=== PATIENT | male | born 1985 | race African-American/Black ===

== ENCOUNTER 2016-10-24 19:12 | Inpatient (IN) | payer MEDICAID, OTHER ==
[2016-10-24] MEDS ORDERED: HYDROmorphone 1 MG/ML 1 ML SYRINGE IVP STA (19:45)
--- NOTE | 2016-10-24 20:10 | XR ---
EXAMINATION TYPE: XR Hip RT and AP Pelvis DATE OF EXAM: 10/24/2016 8:03 PM COMPARISON: 06/30/2016 HISTORY: Fell today. Hip pain TECHNIQUE: A single AP view of the pelvis is obtained. Two views of the right hip are obtained. FINDINGS: There are multiple screws and plates fixing an old fracture of the right acetabulum. Proxi mal femurs are intact. Sacroiliac joints appear normal. I see no acute fracture. There is calcificati on lateral to the right hip joint. IMPRESSION: Old right acetabular fracture. No acute fracture seen. No change compared to old exam.
--- NOTE | 2016-10-24 20:34 | CT ---
EXAMINATION TYPE: CT brain cspine wo con DATE OF EXAM: 10/24/2016 8:22 PM COMPARISON: 06/30/2016 HISTORY: Syncope and frontal injury. CT DLP: 1961.30 mGycm Automated exposure control for dose reduction was used. TECHNIQUE: CT scan of the head and cervical spine are performed without contrast. FINDINGS: The ventricles and sulci appear normal. There is no mass effect nor midline shift. There is no sign of intracranial hemorrhage. The cervical vertebra have normal alignment. Disc spaces are fairly normal. Posterior elements are in tact. Exam is limited by the obesity. Skull base appears intact. IMPRESSION: Negative CT scan of the brain. Negative CT scan of the cervical spine. No change compared to old exam .
[2016-10-24 20:40] LABS: Basophils % (A) 1 %; CH 30.7; CHCM 34.1; Eosinophils # (A) 0.1 k/uL (0-0.7); Eosinophils % (A) 3 %; HCT 44.9 % (39.0-53.0); HDW 2.43; Luc # (Auto) 0.08; Luc % (Auto) 2; Lymphocytes # (A) 1.4 k/uL (1.0-4.8); Lymphocytes % (A) 28 %; MCH 30.3 pg (25.0-35.0); MCHC 33.5 g/dL (31.0-37.0); MCV 90.4 fL (80.0-100.0); Mean Platelet Volume 8.5; Monocytes # (A) 0.4 k/uL (0-1.0); Monocytes % (A) 8 %; Neutrophils # (A) 2.9 k/uL (1.3-7.7); Neutrophils % (A) 59 %; RBC 4.96 m/uL (4.30-5.90); RDW 13.5 % (11.5-15.5); WBC 4.9 k/uL (3.8-10.6)
[2016-10-24 20:51] LABS: ALT 52 U/L (21-72); AST 33 U/L (17-59); Alcohol <10 mg/dL; Alkaline Phosphatase 90 U/L (38-126); Amylase 69 U/L (30-110); Anion Gap 13 mmol/L; Blood Urea Nitrogen 13 mg/dL (9-20); Carbon Dioxide 24 mmol/L (22-30); Chloride 101 mmol/L (98-107); Glucose 128 mg/dL (74-99); Non-African American GFR(MDRD) >60 (>60 ml/min/1.73 sqM); Potassium 4.4 mmol/L (3.5-5.1); Sodium 138 mmol/L (137-145); Total Bilirubin 1.1 mg/dL (0.2-1.3); Total Protein 7.6 g/dL (6.3-8.2)
[2016-10-24 20:53] LABS: Creatine Kinase 275 U/L (55-170); Partial Thromboplastin Time 24.5 sec (22.0-30.0); Prothrombin Time 10.2 sec (9.0-12.0)
[2016-10-24 21:06] LABS: Creatine Kinase MB 1.3 ng/mL (0.0-2.4); Troponin I <0.012 ng/mL (0.000-0.034)
[2016-10-24] MEDS ORDERED: KETOROLAC 30 MG/ML 1 ML VIAL IVP STA (21:29)
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
[2016-10-25] MEDS ORDERED: MORPHINE SULFATE ER 30 MG TABLET PO STA (01:42)
[2016-10-25] MEDS ORDERED: MAG HYDROX/AL HYDROX/SIMETH 30 ML CUP PO PRN (02:43)
[2016-10-25] MEDS ORDERED: MAGNESIUM HYDROXIDE 2,400 MG/10 ML CUP PO PRN (02:43)
[2016-10-25] MEDS ORDERED: ZIPRASIDONE 20 MG VIAL IM PRN (02:43)
[2016-10-25 03:35] VITALS: BMI 42.7
[2016-10-25] MEDS ORDERED: MORPHINE SULFATE IR 15 MG TABLET PO SCH (09:00)
[2016-10-25] MEDS: amLODIPine 10 MG TAB PO SCH (09:04)
[2016-10-25] MEDS: NICOTINE 21MG/24HR PATCH TRANSDERM SCH (09:04)
[2016-10-25] MEDS: RIVAROXABAN 10 MG TAB PO SCH (09:05)
[2016-10-25] MEDS: FAMOTIDINE 20 MG TAB PO SCH ×2 (09:07→21:58)
[2016-10-25] MEDS: PANTOPRAZOLE 40 MG TABLET PO SCH ×2 (09:07→17:56)
[2016-10-25] MEDS: DIAZEPAM 5 MG TAB PO SCH ×3 (09:07→21:59)
[2016-10-25] MEDS ORDERED: GABAPENTIN 300 MG CAP PO SCH (13:00)
[2016-10-25] MEDS: oxyCODONE-APAP 10-325MG 1 EACH TAB PO PRN ×3 (15:06→22:01)
[2016-10-25] MEDS: GABAPENTIN 300 MG CAP PO SCH ×2 (16:50→21:58)
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
[2016-10-25] MEDS ORDERED: AMITRIPTYLINE HCL 25 MG TAB PO SCH (21:00)
[2016-10-25] MEDS ORDERED: QUEtiapine 50 MG TAB PO SCH (21:00)
[2016-10-26] MEDS: PANTOPRAZOLE 40 MG TABLET PO SCH ×2 (09:49→17:17)
[2016-10-26] MEDS: RIVAROXABAN 10 MG TAB PO SCH (09:49)
[2016-10-26] MEDS: amLODIPine 10 MG TAB PO SCH (09:49)
[2016-10-26] MEDS: NICOTINE 21MG/24HR PATCH TRANSDERM SCH (09:52)
[2016-10-26] MEDS: DIAZEPAM 5 MG TAB PO SCH ×3 (09:52→21:16)
[2016-10-26] MEDS: FAMOTIDINE 20 MG TAB PO SCH ×2 (09:52→21:16)
[2016-10-26] MEDS: oxyCODONE-APAP 10-325MG 1 EACH TAB PO PRN ×4 (09:53→21:29)
--- NOTE | 2016-10-26 12:27 | P.PN ---
Subjective SUBJECTIVE: Patient endorses command auditory hallucination "Voice telling me to kill myself ",trouble falling asleep ,slept from 2 AM till 9 AM,limited interaction with other peers because"I do not want to loose my temper",feeling helpless and having difficulty accepting his disability "I am 31 years but I do not have physical strength ,I do feel useless" PER NURSING STAFF:Staff tried to offer him "Walker "for his unstable gait but he was reluctant MENTAL STATUS EXAM: Patient is 31 years male ,limping ,gait is slow and unsteady, pleasant on approach ,fair eyes contact,speech is coherent and goal directed , reports auditory hallucinations ,command in nature,his affect is dysphoric with mixture of irritability and anxiety,somatic preoccupied, worthless feeling,lert and oriented to place ,person and time,able to contract for safety,insight and judgment are limited ASSESSMENT:Patient is still endorsing command auditory hallucination,sleep disturbance and irritability PLAN: 1) Increase Seroquel to restore sleep and eliminate hallucinations 2)Zoloft 50 mg QAM for anxiety and depression,continue Neurontin for pain and as mood stabilizer 3) PT consult ,encourage groups participation Objective - Vital Signs Vital signs: Vital Signs Temp 97.9 F 10/26/16 05:37 Pulse 86 10/26/16 02:03 Resp 18 10/26/16 05:37 BP 136/75 10/26/16 05:37 Pulse Ox 99 10/25/16 03:25 Intake & Output 10/25/16 10/26/16 10/26/16 18:59 06:59 18:59 Weight 151.188 kg - Labs CBC & Chem 7: 10/24/16 19:28 10/24/16 19:28
[2016-10-26] MEDS: GABAPENTIN 300 MG CAP PO SCH ×3 (13:42→21:16)
[2016-10-26] MEDS: SERTRALINE 50 MG TAB PO SCH (13:42)
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
[2016-10-26] MEDS: QUEtiapine 25 MG TAB PO SCH (21:28)
[2016-10-27] MEDS: oxyCODONE-APAP 10-325MG 1 EACH TAB PO PRN ×5 (01:10→22:12)
[2016-10-27] MEDS: amLODIPine 10 MG TAB PO SCH (09:07)
[2016-10-27] MEDS: FAMOTIDINE 20 MG TAB PO SCH ×2 (09:07→20:51)
[2016-10-27] MEDS: DIAZEPAM 5 MG TAB PO SCH ×3 (09:07→20:51)
[2016-10-27] MEDS: PANTOPRAZOLE 40 MG TABLET PO SCH ×2 (09:07→17:41)
[2016-10-27] MEDS: SERTRALINE 50 MG TAB PO SCH (09:07)
[2016-10-27] MEDS: NICOTINE 21MG/24HR PATCH TRANSDERM SCH (09:07)
[2016-10-27] MEDS: RIVAROXABAN 10 MG TAB PO SCH (09:07)
[2016-10-27] MEDS: GABAPENTIN 300 MG CAP PO SCH ×3 (14:03→20:51)
--- NOTE | 2016-10-27 18:09 | P.PN ---
Progress Note - Text SUBJECTIVE: Patient endorses command auditory hallucination "Less intense than before" still afraid to be alone "I will kill myself"",trouble falling asleep ,slept from 2 AM till 9 AM,limited interaction with other patients,reports that he used to be on "XANAX 1-2 mg TID PRN since 2011 ",he endorses high anxiety and asking to be back on Xanax ,was receptive to try PRN Ativan MENTAL STATUS EXAM: Patient is 31 years male ,limping ,gait is slow and unsteady, pleasant on approach ,fair eyes contact,speech is coherent and goal directed , reports auditory hallucinations ,command in nature,his affect is dysphoric with mixture of irritability and anxiety,somatic preoccupied, worthless feeling, alert and oriented to place ,person and time,able to contract for safety, insight and judgment are limited ASSESSMENT:Patient is still endorsing command auditory hallucination,sleep disturbance , irritability and anxiety PLAN: 1) Continue Seroquel to restore sleep and eliminate hallucinations 2INCREASE Zoloft for anxiety and depression,continue Neurontin for pain and as mood stabilizer 3) Encourage groups participation
[2016-10-27] MEDS ORDERED: LORazepam 1 MG TAB PO PRN (18:10)
[2016-10-27] MEDS: QUEtiapine 25 MG TAB PO SCH (20:51)
[2016-10-28] MEDS: oxyCODONE-APAP 10-325MG 1 EACH TAB PO PRN ×3 (05:31→18:48)
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
[2016-10-28] MEDS: PANTOPRAZOLE 40 MG TABLET PO SCH ×2 (09:02→16:53)
[2016-10-28] MEDS: ALPRAZolam 0.5 MG TAB PO SCH ×3 (09:02→21:21)
[2016-10-28] MEDS: RIVAROXABAN 10 MG TAB PO SCH (09:02)
[2016-10-28] MEDS: amLODIPine 10 MG TAB PO SCH (09:02)
[2016-10-28] MEDS: FAMOTIDINE 20 MG TAB PO SCH ×2 (09:02→21:21)
[2016-10-28] MEDS: NICOTINE 21MG/24HR PATCH TRANSDERM SCH (09:02)
[2016-10-28] MEDS: SERTRALINE 100 MG TAB PO SCH (09:03)
[2016-10-28] MEDS: BACLOFEN 10 MG TAB PO PRN (10:04)
[2016-10-28] MEDS: LORazepam 1 MG TAB PO PRN (10:07)
[2016-10-28] MEDS: GABAPENTIN 300 MG CAP PO SCH ×3 (12:48→21:21)
[2016-10-29] MEDS: oxyCODONE-APAP 10-325MG 1 EACH TAB PO PRN ×5 (05:31→21:49)
[2016-10-29] MEDS: LORazepam 1 MG TAB PO PRN ×3 (05:34→23:22)
[2016-10-29] MEDS: NICOTINE 21MG/24HR PATCH TRANSDERM SCH (08:29)
[2016-10-29] MEDS: ALPRAZolam 0.5 MG TAB PO SCH ×3 (08:30→21:47)
[2016-10-29] MEDS: FAMOTIDINE 20 MG TAB PO SCH ×2 (08:30→20:05)
[2016-10-29] MEDS: PANTOPRAZOLE 40 MG TABLET PO SCH ×2 (08:30→18:27)
[2016-10-29] MEDS: RIVAROXABAN 10 MG TAB PO SCH (08:31)
[2016-10-29] MEDS: amLODIPine 10 MG TAB PO SCH (08:31)
[2016-10-29] MEDS: SERTRALINE 100 MG TAB PO SCH (08:31)
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
[2016-10-29] MEDS: GABAPENTIN 300 MG CAP PO SCH ×3 (13:32→20:06)
[2016-10-30] MEDS: oxyCODONE-APAP 10-325MG 1 EACH TAB PO PRN ×4 (05:58→23:44)
[2016-10-30] MEDS: NICOTINE 21MG/24HR PATCH TRANSDERM SCH (08:49)
[2016-10-30] MEDS: SERTRALINE 100 MG TAB PO SCH (08:50)
[2016-10-30] MEDS: FAMOTIDINE 20 MG TAB PO SCH ×2 (08:50→21:24)
[2016-10-30] MEDS: PANTOPRAZOLE 40 MG TABLET PO SCH ×2 (08:50→17:51)
[2016-10-30] MEDS: amLODIPine 10 MG TAB PO SCH (08:50)
[2016-10-30] MEDS: RIVAROXABAN 10 MG TAB PO SCH (08:50)
[2016-10-30] MEDS: ALPRAZolam 0.5 MG TAB PO SCH ×3 (08:50→21:26)
[2016-10-30] MEDS: GABAPENTIN 300 MG CAP PO SCH ×3 (13:18→21:24)
[2016-10-30] MEDS: BACLOFEN 10 MG TAB PO PRN ×2 (13:19→21:24)
--- NOTE | 2016-10-30 13:46 | P.PN ---
Progress Note - Text Interval history: Patient is seen in cross coverage in for Dr. Swanson. He does report that he slept last night. He does describe being in pain and does again inquire regarding his Percocet scheduling being less frequent than it was. We did discuss issues regarding pain medication protocol. He relates that he has been sleeping some today and did miss some groups. He does not seem to voice any adverse psychotropic medication side effects. Mental status exam: He is alert and cooperative with the interview. He does not show any agitation. His mood is described as regarding slept some today. His affect overall is slightly restricted. He denies any thoughts of harm to self or others. He does not show any active evidence of psychosis. He denies any hallucinations. Plan: We'll maintain current psychotropic medication regimen. Dr. Swanson to resume care this patient starting tomorrow. Continue to monitor for any medication side effects.
[2016-10-30] MEDS: LORazepam 1 MG TAB PO PRN ×2 (14:47→20:19)
[2016-10-30] MEDS: ACETAMINOPHEN TAB 325 MG TAB PO PRN (14:47)
[2016-10-31] MEDS: oxyCODONE-APAP 10-325MG 1 EACH TAB PO PRN ×5 (05:35→22:05)
[2016-10-31] MEDS: LORazepam 1 MG TAB PO PRN ×3 (06:51→22:56)
[2016-10-31] MEDS: NICOTINE 21MG/24HR PATCH TRANSDERM SCH (08:31)
[2016-10-31] MEDS: amLODIPine 10 MG TAB PO SCH (08:31)
[2016-10-31] MEDS: FAMOTIDINE 20 MG TAB PO SCH ×2 (08:31→20:42)
[2016-10-31] MEDS: RIVAROXABAN 10 MG TAB PO SCH (08:31)
[2016-10-31] MEDS: PANTOPRAZOLE 40 MG TABLET PO SCH ×2 (08:31→19:31)
[2016-10-31] MEDS: SERTRALINE 100 MG TAB PO SCH (08:31)
[2016-10-31] MEDS: ALPRAZolam 0.5 MG TAB PO SCH ×3 (08:32→20:42)
[2016-10-31] MEDS: GABAPENTIN 300 MG CAP PO SCH ×3 (12:38→20:42)
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
[2016-10-31] MEDS: BACLOFEN 10 MG TAB PO PRN (14:38)
[2016-10-31] MEDS: QUEtiapine XR 200 MG TAB.ER.24H PO SCH (19:31)
[2016-10-31] MEDS: ACETAMINOPHEN TAB 325 MG TAB PO PRN (20:41)
[2016-11-01] MEDS: oxyCODONE-APAP 10-325MG 1 EACH TAB PO PRN ×5 (01:23→21:01)
[2016-11-01] MEDS: PANTOPRAZOLE 40 MG TABLET PO SCH ×2 (08:27→17:16)
[2016-11-01] MEDS: NICOTINE 21MG/24HR PATCH TRANSDERM SCH (08:27)
[2016-11-01] MEDS: amLODIPine 10 MG TAB PO SCH ×2 (08:28→08:30)
[2016-11-01] MEDS: FAMOTIDINE 20 MG TAB PO SCH ×2 (08:28→21:00)
[2016-11-01] MEDS: ALPRAZolam 0.5 MG TAB PO SCH ×3 (08:28→21:05)
[2016-11-01] MEDS: GABAPENTIN 100 MG CAP PO SCH (08:29)
[2016-11-01] MEDS: SERTRALINE 100 MG TAB PO SCH (08:29)
[2016-11-01] MEDS: RIVAROXABAN 10 MG TAB PO SCH (08:29)
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
[2016-11-01] MEDS: GABAPENTIN 300 MG CAP PO SCH ×3 (13:46→20:59)
[2016-11-01] MEDS: CYCLOBENZAPRINE 5 MG TAB PO PRN (15:09)
[2016-11-01] MEDS: LORazepam 1 MG TAB PO PRN ×2 (16:40→22:51)
[2016-11-01] MEDS: QUEtiapine XR 200 MG TAB.ER.24H PO SCH (22:51)
[2016-11-02] MEDS: oxyCODONE-APAP 10-325MG 1 EACH TAB PO PRN ×4 (03:57→21:17)
[2016-11-02] MEDS: LORazepam 1 MG TAB PO PRN (04:47)
[2016-11-02] MEDS: CYCLOBENZAPRINE 5 MG TAB PO PRN (06:32)
[2016-11-02] MEDS: SERTRALINE 100 MG TAB PO SCH (08:35)
[2016-11-02] MEDS: GABAPENTIN 100 MG CAP PO SCH (08:36)
[2016-11-02] MEDS: FAMOTIDINE 20 MG TAB PO SCH ×2 (08:36→21:15)
[2016-11-02] MEDS: PANTOPRAZOLE 40 MG TABLET PO SCH ×2 (08:36→18:07)
[2016-11-02] MEDS: ALPRAZolam 0.5 MG TAB PO SCH ×3 (08:38→21:16)
[2016-11-02] MEDS: RIVAROXABAN 10 MG TAB PO SCH (08:45)
[2016-11-02] MEDS: NICOTINE 21MG/24HR PATCH TRANSDERM SCH (08:48)
--- NOTE | 2016-11-02 10:28 | P.PN ---
Progress Note - Text Interval history: He does report that he slept last night. He does describe being in pain and he has been taking PRN Percocet Q 4 hours ,still having anxiety and requesting PRN Ativan"At least twice a day "despite being on schedule dose of Xanax, We did discuss issues regarding his drug seeking behavior for Opium and Benzodiazepine ,patient has very limited insight to this and got very defensive . He is still complaining of command hallucinations , intensity decreased to 4/10 ,he did miss some groups saying "I do feel embarrassed talking about my life" He does not seem to voice any adverse psychotropic medication side effects. Mental status exam: He is alert with the interview. He does not show any agitation. His affect overall is slightly restricted. ,superficially cooperative,guarded,evasive,speech is non spontaneous ,limited in productivity ,tangential,he reports command hallucination,paranoia ,no homicidal ideation, ,alert and oriented to place,person and date,insight and judgment are limited ASSESSMENT:Patient is still endorsing command auditory hallucinations telling him to end his life , ,lot of somatic complains and drug seeking behavior PLAN:1) Limit setting on his drug seeking behavior ,we will decrease PRN Ativan 2) We'll maintain current psychotropic medications as ordered. We'll continue to monitor for any medication side effects, monitor for his ongoing response to treatment. Continue to monitor regarding command hallucinations and suicidal ideation 3) Family meeting to discuss post-plan discharge
[2016-11-02] MEDS: GABAPENTIN 300 MG CAP PO SCH ×3 (13:39→21:15)
[2016-11-02] MEDS: LORazepam 0.5 MG TAB PO PRN (14:39)
[2016-11-02] MEDS: QUEtiapine XR 200 MG TAB.ER.24H PO SCH (22:47)
[2016-11-02 23:16] VITALS: PULSE 74
[2016-11-03 02:15] VITALS: BP 138/65; RESP 20; TEMP 97.5
[2016-11-03] MEDS: LORazepam 0.5 MG TAB PO PRN ×2 (02:24→11:43)
[2016-11-03] MEDS: oxyCODONE-APAP 10-325MG 1 EACH TAB PO PRN ×4 (02:24→13:23)
[2016-11-03] MEDS: CYCLOBENZAPRINE 5 MG TAB PO PRN ×2 (03:13→12:16)
[2016-11-03] MEDS: ALPRAZolam 0.5 MG TAB PO SCH (08:42)
[2016-11-03] MEDS: NICOTINE 21MG/24HR PATCH TRANSDERM SCH (08:42)
[2016-11-03] MEDS: PANTOPRAZOLE 40 MG TABLET PO SCH (08:42)
[2016-11-03] MEDS: FAMOTIDINE 20 MG TAB PO SCH (08:42)
[2016-11-03] MEDS: GABAPENTIN 100 MG CAP PO SCH (08:42)
[2016-11-03] MEDS: amLODIPine 10 MG TAB PO SCH (08:42)
[2016-11-03] MEDS: RIVAROXABAN 10 MG TAB PO SCH (08:43)
[2016-11-03] MEDS: SERTRALINE 100 MG TAB PO SCH (08:43)
[2016-11-03] MEDS: GABAPENTIN 300 MG CAP PO SCH (12:17)
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
== END 2016-11-03 13:32 | disposition home or self-care (01) | DRG 885 ==
LOC: EC 19:12 → 3MHU 10-25 02:06
PROVIDERS: ADMIT Psychiatry & Neurology Psychiatry; ATTEND Psychiatry & Neurology Psychiatry
DX: F33.3 Major depressive disorder, recurrent, severe with psychotic symptoms (principal); R45.851 Suicidal ideations; F60.9 Personality disorder, unspecified; F17.200 Nicotine dependence, unspecified, uncomplicated; F43.10 Post-traumatic stress disorder, unspecified; G89.4 Chronic pain syndrome; K21.9 Gastro-esophageal reflux disease without esophagitis; S00.03XA Contusion of scalp, initial encounter; S16.1XXA Strain of muscle, fascia and tendon at neck level, initial encounter; Z72.89 Other problems related to lifestyle; Z79.01 Long term (current) use of anticoagulants; Z79.899 Other long term (current) drug therapy; W17.89XA Other fall from one level to another, initial encounter
CPT/HCPCS: 36415; 70450; 72125; 73502; 80053; 80320; 82150; 82550; 82553; 83690; 84443; 84484; 85025; 85610; 85730; 96365; 96366; 96367; 96374; 96375; 99285

== ENCOUNTER 2016-12-11 03:26 | Inpatient (IN) | payer MEDICAID, OTHER ==
[2016-12-11] MEDS ORDERED: HYDROcodone/APAP 5-325MG 1 EACH TAB PO STA (03:45)
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
--- NOTE | 2016-12-11 04:31 | XR ---
EXAM: XR Right Ankle Complete, 3 or More Views. CLINICAL HISTORY: Pain TECHNIQUE: Frontal, lateral and oblique views of the right ankle. COMPARISON: No relevant prior studies available. FINDINGS/IMPRESSION: No radiographic evidence for acute fractures or dislocations. Soft tissue swelling. Fixation screws in the right medial malleolus. Joint space narrowing.
[2016-12-11] MEDS ORDERED: MAGNESIUM HYDROXIDE 2,400 MG/10 ML CUP PO PRN (11:16)
[2016-12-11] MEDS ORDERED: ACETAMINOPHEN TAB 325 MG TAB PO PRN (11:16)
[2016-12-11] MEDS ORDERED: MAG HYDROX/AL HYDROX/SIMETH 30 ML CUP PO PRN (11:16)
[2016-12-11] MEDS: RIVAROXABAN 10 MG TAB PO SCH (11:23)
[2016-12-11 11:42] VITALS: BMI 42.7
[2016-12-11] MEDS: amLODIPine 10 MG TAB PO SCH (13:01)
[2016-12-11] MEDS: SERTRALINE 100 MG TAB PO SCH (13:02)
[2016-12-11] MEDS: oxyCODONE-APAP 10-325MG 1 EACH TAB PO PRN ×2 (13:05→19:02)
[2016-12-11] MEDS: GABAPENTIN 300 MG CAP PO SCH ×2 (13:06→17:29)
[2016-12-11] MEDS: NICOTINE 14MG/24HR PATCH TRANSDERM SCH ×2 (13:07→19:15)
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
[2016-12-11] MEDS: PANTOPRAZOLE 40 MG TABLET PO SCH (17:29)
[2016-12-11] MEDS: QUEtiapine XR 200 MG TAB.ER.24H PO SCH (20:33)
[2016-12-11] MEDS: LORazepam 1 MG TAB PO PRN (20:35)
[2016-12-11] MEDS ORDERED: GABAPENTIN 300 MG CAP PO SCH (21:00)
[2016-12-12] MEDS: PANTOPRAZOLE 40 MG TABLET PO SCH ×2 (06:56→16:58)
[2016-12-12] MEDS ORDERED: GABAPENTIN 100 MG CAP PO SCH (09:00)
[2016-12-12] MEDS: NICOTINE 14MG/24HR PATCH TRANSDERM SCH (09:30)
[2016-12-12] MEDS: RIVAROXABAN 10 MG TAB PO SCH (09:31)
[2016-12-12] MEDS: SERTRALINE 100 MG TAB PO SCH (09:31)
[2016-12-12] MEDS: amLODIPine 10 MG TAB PO SCH (09:31)
[2016-12-12] MEDS: oxyCODONE-APAP 10-325MG 1 EACH TAB PO PRN ×5 (09:33→23:14)
[2016-12-12 10:01] LABS: ALT 38 U/L (21-72); AST 30 U/L (17-59); Alkaline Phosphatase 78 U/L (38-126); Anion Gap 12 mmol/L; Blood Urea Nitrogen 12 mg/dL (9-20); Calcium 9.5 mg/dL (8.4-10.2); Carbon Dioxide 27 mmol/L (22-30); Chloride 102 mmol/L (98-107); Glucose 90 mg/dL (74-99); Non-African American GFR(MDRD) >60 (>60 ml/min/1.73 sqM); Potassium 4.4 mmol/L (3.5-5.1); Sodium 141 mmol/L (137-145); Total Bilirubin 1.1 mg/dL (0.2-1.3); Total Protein 7.5 g/dL (6.3-8.2)
[2016-12-12 10:07] LABS: Basophils # (A) 0.1 k/uL (0-0.2); Basophils % (A) 1 %; CH 30.8; CHCM 33.9; Eosinophils # (A) 0.2 k/uL (0-0.7); Eosinophils % (A) 3 %; HGB 14.7 gm/dL (13.0-17.5); Luc # (Auto) 0.26; Luc % (Auto) 4; Lymphocytes # (A) 2.6 k/uL (1.0-4.8); Lymphocytes % (A) 42 %; MCH 31.2 pg (25.0-35.0); MCHC 34.2 g/dL (31.0-37.0); MCV 91.3 fL (80.0-100.0); Mean Platelet Volume 8.4; Monocytes # (A) 0.3 k/uL (0-1.0); Monocytes % (A) 5 %; Neutrophils # (A) 2.8 k/uL (1.3-7.7); Neutrophils % (A) 46 %; RDW 13.4 % (11.5-15.5); WBC 6.2 k/uL (3.8-10.6); WBC (Perox) 6.33
[2016-12-12] MEDS: DULoxetine HCL 30 MG CAPSULE.DR PO SCH (11:06)
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
[2016-12-12] MEDS: GABAPENTIN 400 MG CAP PO SCH ×2 (15:43→20:10)
[2016-12-12] MEDS: LORazepam 1 MG TAB PO PRN (16:05)
[2016-12-12] MEDS: QUEtiapine XR 200 MG TAB.ER.24H PO SCH (20:10)
[2016-12-13] MEDS: GABAPENTIN 400 MG CAP PO SCH ×3 (08:27→21:27)
[2016-12-13] MEDS: amLODIPine 10 MG TAB PO SCH (08:27)
[2016-12-13] MEDS: DULoxetine HCL 30 MG CAPSULE.DR PO SCH (08:27)
[2016-12-13] MEDS: NICOTINE 14MG/24HR PATCH TRANSDERM SCH (08:27)
[2016-12-13] MEDS: RIVAROXABAN 10 MG TAB PO SCH (08:27)
[2016-12-13] MEDS: PANTOPRAZOLE 40 MG TABLET PO SCH ×2 (08:27→18:26)
[2016-12-13] MEDS: oxyCODONE-APAP 10-325MG 1 EACH TAB PO PRN ×4 (08:28→23:16)
--- NOTE | 2016-12-13 10:33 | P.PN ---
Progress Note - Text Interval history: Patient was seen for follow-up ,patient is not participating in groups ,no interaction with peers ,evasive,guarded ,focussing about his pain and has been asking for PRN Ativan and opium medications ,he slept 7 hours but still endorsing command auditory hallucination,feeling hopeless and helpless, talked about lacking motivation to pursue PT and outpatient counseling ,asking again about "Restart his Adderall for energy ",I discussed with him side- effect of Adderall especially with his hallucination but patient did not agree and claimed that he was "HAPPY AND ABLE TO FUNCTION WITH ADDERALL" Mental status exam: The patient is casually dressed Eye contact good speech is fluent mainly reactive to questions asked. He verbalizes having lot of pain and asking to take his pain medication more often He is reporting auditory hallucinations telling him to kill himself ,endorses depressive and anxiety symptoms. He is endorsing no specific delusions Insight to his use for habit forming RX is impaired He is demonstrating no verbal or physical aggressiveness. Plan:Increase Cymbalta for depression and pain ,increase Neurontin 800 mg TID , continue Seroquel XR 200 mg for hallucination and as augmentation ,discontinue Ativan PRN,will continue to monitor his mood ,encourage groups participation
[2016-12-13] MEDS: hydrOXYzine PAMOATE 25 MG CAP PO PRN (18:28)
[2016-12-13] MEDS: QUEtiapine XR 200 MG TAB.ER.24H PO SCH (22:07)
[2016-12-14 01:49] VITALS: RESP 20; TEMP 98.1
[2016-12-14] MEDS: PANTOPRAZOLE 40 MG TABLET PO SCH (08:55)
[2016-12-14] MEDS: amLODIPine 10 MG TAB PO SCH (08:55)
[2016-12-14] MEDS: GABAPENTIN 400 MG CAP PO SCH (08:55)
[2016-12-14] MEDS: NICOTINE 14MG/24HR PATCH TRANSDERM SCH (08:55)
[2016-12-14] MEDS: oxyCODONE-APAP 10-325MG 1 EACH TAB PO PRN ×2 (08:55→13:17)
[2016-12-14] MEDS: RIVAROXABAN 10 MG TAB PO SCH (08:55)
[2016-12-14] MEDS ORDERED: DULoxetine HCL 60 MG CAPSULE.DR PO SCH (09:00)
[2016-12-14 09:02] VITALS: BP 147/74; PULSE 81
[2016-12-14] MEDS: hydrOXYzine PAMOATE 25 MG CAP PO PRN (11:07)
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
== END 2016-12-14 14:24 | disposition home or self-care (01) | DRG 885 ==
LOC: EC 03:26 → 3MHU 10:34
PROVIDERS: ADMIT Psychiatry & Neurology Psychiatry; ATTEND Psychiatry & Neurology Psychiatry
DX: F33.3 Major depressive disorder, recurrent, severe with psychotic symptoms (principal); R45.851 Suicidal ideations; Z91.14 Patient's other noncompliance with medication regimen; F41.0 Panic disorder [episodic paroxysmal anxiety]; F10.129 Alcohol abuse with intoxication, unspecified; F17.200 Nicotine dependence, unspecified, uncomplicated; F43.10 Post-traumatic stress disorder, unspecified; G89.29 Other chronic pain; K21.9 Gastro-esophageal reflux disease without esophagitis; Z86.718 Personal history of other venous thrombosis and embolism; Z87.820 Personal history of traumatic brain injury; V89.2XXS Person injured in unspecified motor-vehicle accident, traffic, sequela; Z79.01 Long term (current) use of anticoagulants; Z79.899 Other long term (current) drug therapy; M54.9 Dorsalgia, unspecified; F11.10 Opioid abuse, uncomplicated; F15.10 Other stimulant abuse, uncomplicated; F13.10 Sedative, hypnotic or anxiolytic abuse, uncomplicated; F60.9 Personality disorder, unspecified
CPT/HCPCS: 80053; 80306; 82075; 84443; 85025; 99285

== ENCOUNTER 2016-12-17 21:55 | Emergency (ER) | payer OTHER ==
[2016-12-17 22:14] VITALS: RESP 18
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
[2016-12-17] MEDS ORDERED: KETOROLAC 60 MG/2 ML VIAL IM STA (22:44)
--- NOTE | 2016-12-17 23:10 | CT ---
EXAM: CT Head Without Intravenous Contrast. CLINICAL HISTORY: Reason: Pain TECHNIQUE: Axial computed tomography images of the head/brain without intravenous contrast. CTDI is 57.40 mGy and DLP is 1705.30 mGy-cm COMPARISON: CT head on 06/30/2016 FINDINGS: Brain: No acute infarct or hemorrhage. No extra-axial fluid collection. No mass effect or midline shift. Ventricles and sulci: Normal. No ventriculomegaly or intraventricular hemorrhage. Skull: Normal. No bony lesion or fracture. Subcutaneous tissues: Mild left posterior scalp hematoma at the vertex. Sinuses: Normal. No air-fluid levels or mucosal thickening. Mastoid air cells: Normal. Orbits: Grossly unremarkable. IMPRESSION: No acute intracranial abnormality. Mild left posterior scalp hematoma at the vertex without underlying skull fracture.
--- NOTE | 2016-12-17 23:18 | CT ---
ADDENDUM - Added by Tony Costello M.D. on 12/17/2016 11:21 PM (-07:00) Exam: CT FACIAL Without Contrast Comparison: None Technique : CT of the facial bones with coronal reformats. CTDI is 57.40 mGy and DLP is 1705.30 mGy-cm FINDINGS: FACIAL BONES: Normal. No facial fracture identified. NASAL FOSSA: Normal. No significant nasal septal deviation. No nasal bone fracture. SINUSES: Very tiny polyp versus mucus retention cyst in the right sphenoid sinus. No mucosal thickening or air-fluid level. SOFT TISSUES: Small metallic densities in the subcutaneous fat overlying the left mandible with mild skin thickening may represent remote injury/foreign body. Minimal soft tissue bruising over the right maxilla. OTHER: IMPRESSION: No acute facial fracture. Small metallic densities in the subcutaneous fat overlying the left mandible with mild skin thickening may represent remote injury/foreign body. Minimal soft tissue bruising over the right maxilla. rScriptor Unformatted Report Format: SC Options: b ui h n cb History: Reason: Pain Exam: CT FACIAL Without Contrast Comparison: None Technique more: CTDI is 57.40 mGy and DLP is 1705.30 mGy-cm FINDINGS: FACIAL BONES: Normal. No facial fracture identified. NASAL FOSSA: Normal. No significant nasal septal deviation. No nasal bone fracture. SINUSES: Very tiny polyp versus mucus retention cyst in the right sphenoid sinus. No mucosal thickening or air-fluid level. SOFT TISSUES: Small metallic densities in the subcutaneous fat overlying the left mandible with mild skin thickening may represent remote injury/foreign body. Minimal soft tissue bruising over the right maxilla. OTHER:
--- NOTE | 2016-12-17 23:28 | XR ---
EXAM: XR Right Hip With Pelvis When Performed, 2 or 3 Views. CLINICAL HISTORY: Reason: Pain TECHNIQUE: Two or three views of the right hip, with pelvis when performed. COMPARISON: Hip and pelvis radiographs on 10/24/2016 FINDINGS: Bones/joints: Again seen are multiple plate and screws fixating an old right acetabular fracture with similar dystrophic calcifications along the lateral right acetabulum. No new fracture identified. No hip dislocation. No bony lesion. Soft tissues: Normal. IMPRESSION: Multiple plates and screws fixating an old right acetabular fracture. No new fracture or dislocation identified.
[2016-12-18 07:45] VITALS: BP 143/80; PULSE 68; TEMP 97.4
== END 2016-12-18 07:45 | disposition home or self-care (01) ==
LOC: EC 21:55
DX: S70.01XA Contusion of right hip, initial encounter (principal); S09.90XA Unspecified injury of head, initial encounter; F32.9 Major depressive disorder, single episode, unspecified; K21.9 Gastro-esophageal reflux disease without esophagitis; F41.9 Anxiety disorder, unspecified; F17.200 Nicotine dependence, unspecified, uncomplicated; Z79.01 Long term (current) use of anticoagulants; Z79.899 Other long term (current) drug therapy; Z87.820 Personal history of traumatic brain injury; Z86.718 Personal history of other venous thrombosis and embolism; W10.9XXA Fall (on) (from) unspecified stairs and steps, initial encounter; W22.09XA Striking against other stationary object, initial encounter
CPT/HCPCS: 82075; 80306; 73502; 70486; 70450; 99284; 96372; J1885

== ENCOUNTER 2017-01-21 12:56 | Emergency (ER) | payer OTHER ==
[2017-01-21 13:49] VITALS: RESP 18
[2017-01-21] MEDS ORDERED: HYDROcodone/APAP 5-325MG 1 EACH TAB PO STA ×2 (14:51→19:59)
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
--- NOTE | 2017-01-21 16:32 | XR ---
EXAMINATION TYPE: XR ankle complete RT DATE OF EXAM: 01/21/2017 4:02 PM COMPARISON: NONE HISTORY: Twisted ankle history of surgery TECHNIQUE: 3 views right ankle FINDINGS: Old open reduction internal fixation with screws into the medial malleolus are evident. Minimal soft tissue swelling is over the medial malleolus. Ankle mortise appears intact. No acute fra ctures evident. IMPRESSION: 1. Old postsurgical changes. 2. No acute osseous abnormality.
[2017-01-21] MEDS ORDERED: IBUPROFEN 800 MG TAB PO STA (16:57)
[2017-01-21 17:56] LABS: Basophils % (A) 1 %; CH 31.4; CHCM 34.5; Eosinophils # (A) 0.2 k/uL (0-0.7); Eosinophils % (A) 3 %; HGB 14.6 gm/dL (13.0-17.5); Luc # (Auto) 0.15; Luc % (Auto) 3; Lymphocytes % (A) 34 %; MCHC 33.9 g/dL (31.0-37.0); MCV 91.3 fL (80.0-100.0); Mean Platelet Volume 7.7; Monocytes # (A) 0.3 k/uL (0-1.0); Monocytes % (A) 5 %; Neutrophils # (A) 3.2 k/uL (1.3-7.7); Neutrophils % (A) 56 %; RBC 4.71 m/uL (4.30-5.90); RDW 13.5 % (11.5-15.5); WBC 5.8 k/uL (3.8-10.6); WBC (Perox) 5.58
[2017-01-21 18:15] LABS: ALT 62 U/L (21-72); AST 43 U/L (17-59); Alkaline Phosphatase 72 U/L (38-126); Anion Gap 9 mmol/L; Blood Urea Nitrogen 14 mg/dL (9-20); Calcium 9.6 mg/dL (8.4-10.2); Carbon Dioxide 26 mmol/L (22-30); Chloride 103 mmol/L (98-107); Glucose 123 mg/dL (74-99); Non-African American GFR(MDRD) >60 (>60 ml/min/1.73 sqM); Potassium 4.4 mmol/L (3.5-5.1); Sodium 138 mmol/L (137-145); Total Bilirubin 0.7 mg/dL (0.2-1.3); Total Protein 7.3 g/dL (6.3-8.2)
[2017-01-22] MEDS ORDERED: oxyCODONE-APAP 10-325MG 1 EACH TAB PO PRN (12:06)
[2017-01-22 15:55] VITALS: BP 156/78; PULSE 70; TEMP 97.9
== END 2017-01-22 15:54 | disposition home or self-care (01) ==
LOC: EC 12:56
DX: F32.9 Major depressive disorder, single episode, unspecified (principal); S99.911A Unspecified injury of right ankle, initial encounter; G89.29 Other chronic pain; M25.471 Effusion, right ankle; R45.851 Suicidal ideations; I82.409 Acute embolism and thrombosis of unspecified deep veins of unspecified lower extremity; F17.200 Nicotine dependence, unspecified, uncomplicated; K21.9 Gastro-esophageal reflux disease without esophagitis; Z79.01 Long term (current) use of anticoagulants; Z79.899 Other long term (current) drug therapy; X50.1XXA Overexertion from prolonged static or awkward postures, initial encounter
CPT/HCPCS: 36415; 80053; 80306; 82075; 85025; 99284

== ENCOUNTER 2017-05-24 15:52 | Emergency (ER) | payer OTHER ==
[2017-05-24] MEDS ORDERED: IBUPROFEN 800 MG TAB PO STA (16:40)
[2017-05-24] MEDS ORDERED: HYDROcodone/APAP 5-325MG 1 EACH TAB PO STA (16:40)
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
[2017-05-24 20:51] LABS: CH 31.9; CHCM 34.3; HCT 41.3 % (39.0-53.0); HDW 2.33; HGB 14.4 gm/dL (13.0-17.5); MCH 32.5 pg (25.0-35.0); MCHC 34.8 g/dL (31.0-37.0); MCV 93.4 fL (80.0-100.0); Mean Platelet Volume 8.5; RBC 4.42 m/uL (4.30-5.90); RDW 14.3 % (11.5-15.5); WBC 7.8 k/uL (3.8-10.6)
[2017-05-24 20:55] LABS: Appearance,Urine Clear (Clear); Bilirubin,Urine Negative (Negative); Glucose,Urine (UA) Negative (Negative); Ketones,Urine Negative (Negative); Leukocyte Esterase,Urine Negative (Negative); Nitrite,Urine Negative (Negative); Protein,Urine Negative (Negative); Specific Gravity,Urine 1.025 (1.001-1.035); UA Billing (MACRO vs. MICRO) CHEM; Urobilinogen,Urine <2.0 mg/dL (<2.0)
[2017-05-24 21:01] LABS: ALT 60 U/L (21-72); AST 39 U/L (17-59); Alkaline Phosphatase 75 U/L (38-126); Anion Gap 11 mmol/L; Blood Urea Nitrogen 12 mg/dL (9-20); Calcium 9.4 mg/dL (8.4-10.2); Carbon Dioxide 21 mmol/L (22-30); Chloride 104 mmol/L (98-107); Glucose 116 mg/dL (74-99); Non-African American GFR(MDRD) >60 (>60 ml/min/1.73 sqM); Potassium 3.7 mmol/L (3.5-5.1); Sodium 136 mmol/L (137-145); Total Bilirubin 0.8 mg/dL (0.2-1.3); Total Protein 7.2 g/dL (6.3-8.2)
[2017-05-24] MEDS ORDERED: oxyCODONE-APAP 10-325MG 1 EACH TAB PO PRN (21:43)
[2017-05-25 01:11] VITALS: BP 143/71; PULSE 67; RESP 16; TEMP 97.1
[2017-05-25] MEDS ORDERED: LORazepam 1 MG TAB PO STA (01:22)
== END 2017-05-25 02:01 | disposition other institution (70) ==
LOC: EC 15:52
DX: R45.851 Suicidal ideations (principal); K21.9 Gastro-esophageal reflux disease without esophagitis; F32.9 Major depressive disorder, single episode, unspecified; F41.9 Anxiety disorder, unspecified; F17.200 Nicotine dependence, unspecified, uncomplicated; Z86.718 Personal history of other venous thrombosis and embolism; Z79.899 Other long term (current) drug therapy
CPT/HCPCS: 36415; 72170; 80053; 80306; 81003; 82075; 85027; 99285

== ENCOUNTER 2017-08-26 18:11 | Emergency (ER) | payer OTHER ==
[2017-08-26] MEDS ORDERED: SODIUM CHLORIDE 0.9% 2,000 ML IV STA (18:52)
[2017-08-26] MEDS ORDERED: KETOROLAC 30 MG/ML 1 ML VIAL IVP STA (18:52)
[2017-08-26] MEDS ORDERED: ONDANSETRON 4 MG/2 ML VIAL IVP STA (18:52)
[2017-08-26] MEDS ORDERED: HYDROmorphone 0.5 MG/0.5 ML SYRINGE IVP STA (18:52)
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
[2017-08-26 20:01] LABS: ALT 76 U/L (21-72); AST 49 U/L (17-59); Alkaline Phosphatase 84 U/L (38-126); Amylase 98 U/L (30-110); Anion Gap 13 mmol/L; Blood Urea Nitrogen 17 mg/dL (9-20); Calcium 9.8 mg/dL (8.4-10.2); Carbon Dioxide 20 mmol/L (22-30); Chloride 100 mmol/L (98-107); Glucose 112 mg/dL (74-99); Non-African American GFR(MDRD) >60 (>60 ml/min/1.73 sqM); Potassium 4.3 mmol/L (3.5-5.1); Sodium 133 mmol/L (137-145); Total Bilirubin 0.9 mg/dL (0.2-1.3); Total Protein 8.5 g/dL (6.3-8.2)
[2017-08-26 22:07] LABS: Basophils % (A) 0 %; CH 29.8; CHCM 32.8; Eosinophils # (A) 0.2 k/uL (0-0.7); Eosinophils % (A) 2 %; HDW 2.16; HGB 15.4 gm/dL (13.0-17.5); Luc # (Auto) 0.07; Luc % (Auto) 1; Lymphocytes % (A) 11 %; MCH 29.9 pg (25.0-35.0); MCHC 32.7 g/dL (31.0-37.0); MCV 91.4 fL (80.0-100.0); Mean Platelet Volume 8.8; Monocytes # (A) 0.4 k/uL (0-1.0); Monocytes % (A) 4 %; Neutrophils # (A) 7.2 k/uL (1.3-7.7); Neutrophils % (A) 82 %; RBC 5.14 m/uL (4.30-5.90); RDW 14.3 % (11.5-15.5); WBC 8.8 k/uL (3.8-10.6); WBC (Perox) 8.72
[2017-08-26] MEDS ORDERED: CIPROFLOXACIN HCL 500 MG TAB PO STA (22:41)
[2017-08-26 23:17] VITALS: BP 142/87; PULSE 68; RESP 20; TEMP 97.9
== END 2017-08-26 22:55 | disposition home or self-care (01) ==
LOC: EC 18:11
DX: K52.9 Noninfective gastroenteritis and colitis, unspecified (principal); K21.9 Gastro-esophageal reflux disease without esophagitis; F17.200 Nicotine dependence, unspecified, uncomplicated; Z86.718 Personal history of other venous thrombosis and embolism; Z79.01 Long term (current) use of anticoagulants; Z79.899 Other long term (current) drug therapy
CPT/HCPCS: 36415; 80053; 82150; 83690; 85025; 87324; 87045; 87046; 99284; 96374; 96375 ×2; 96361 ×2; J2405; J1885; J1170

== ENCOUNTER 2018-01-02 20:47 | Inpatient (IN) | payer MEDICAID, OTHER ==
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
[2018-01-02] MEDS: IBUPROFEN 600 MG TAB PO STA ×2 (21:30→21:31)
--- NOTE | 2018-01-02 21:40 | XR ---
EXAMINATION TYPE: XR knee complete RT DATE OF EXAM: 01/02/2018 CLINICAL HISTORY: Right knee pain after fall TECHNIQUE: Three views of the right knee are obtained. COMPARISON: 11/05/2015 FINDINGS: There is no acute fracture/dislocation evident in right knee. Small marginal osteophytes a re seen of the lateral and medial compartment with minimal medial compartment joint space narrowing. Incidental note of an osteochondroma is seen of the medial distal femoral metaphysis. Mild inferior p atellar pole osteophyte is also noted. Osseous mineralization is within normal limits. The overlying soft tissue appears unremarkable. IMPRESSION: There is no acute fracture or dislocation in the right knee. Mild tricompartmental arthr osis and incidental note of an osteochondroma.
--- NOTE | 2018-01-02 21:42 | XR ---
EXAMINATION TYPE: XR Hip RT and AP Pelvis DATE OF EXAM: 01/02/2018 COMPARISON: NONE HISTORY: Right hip pain TECHNIQUE: A single AP view of the pelvis is obtained. Two views of the right hip are obtained. FINDINGS: There is no acute fracture/dislocation evident in the pelvis. The hip and sacroiliac join ts appear symmetric and unremarkable. The overlying soft tissue appears unremarkable. Two views of right hip show no acute fracture or dislocation although there are extensive surgical ch anges of the right hemipelvis and acetabulum with heterotopic ossification, slightly limiting evaluat ion. No focal lytic or sclerotic lesion seen in the proximal right femur. The overlying soft tissue is unremarkable. IMPRESSION: 1. No evidence of acute fracture or dislocation of the pelvis. 2. No gross evidence of fracture of the right hip although extensive right pelvic postsurgical change s and heterotopic ossification slightly limited evaluation.
--- NOTE | 2018-01-02 21:43 | XR ---
EXAMINATION TYPE: XR cervical spine comp DATE OF EXAM: 01/02/2018 TECHNIQUE: Frontal, lateral, oblique, swimmers, and open mouth view of the cervical spine are obtaine d. HISTORY: Neck pain after fall COMPARISON: None FINDINGS: The cervical spine is visualized in its entirety from C1 thru the top of T1 level, it is s atisfactory in alignment without evidence of acute fracture or dislocation. The pre-vertebral soft t issue appears within normal limits. The C1-C2 articulation is within normal limits on the open mouth view. The oblique images are within normal limits. IMPRESSION: No acute fracture or dislocation is seen in the cervical spine.
[2018-01-02] MEDS ORDERED: IBUPROFEN 600 MG TAB PO STA (21:53)
[2018-01-03 00:23] LABS: Amphetamine Screen,Urine Detected (NotDetected); Barbiturate Screen,Urine Not Detected (NotDetected); Benzodiazepines Screen,Urine Not Detected (NotDetected); Cocaine Screen,Urine Not Detected (NotDetected); Methadone Screen, Urine Not Detected (NotDetected); Opiate Screen,Urine Not Detected (NotDetected); Oxycodone Screen, Urine Not Detected (NotDetected); Phencyclidine Screen,Urine Not Detected (NotDetected); Tricyclic Antidepressant,Urine Detected (NotDetected); Urn Cannabinoid Scrn Not Detected (NotDetected)
[2018-01-03] MEDS ORDERED: MAG HYDROX/AL HYDROX/SIMETH 30 ML CUP PO PRN (02:10)
[2018-01-03] MEDS ORDERED: MAGNESIUM HYDROXIDE 2,400 MG/10 ML CUP PO PRN (02:10)
[2018-01-03] MEDS: GABAPENTIN 400 MG CAP PO SCH ×2 (08:25→20:13)
[2018-01-03] MEDS: LISINOPRIL 5 MG TAB PO SCH (08:26)
[2018-01-03] MEDS: amLODIPine 10 MG TAB PO SCH (08:26)
[2018-01-03] MEDS: HYDROCHLOROTHIAZIDE 25 MG TAB PO SCH (08:26)
[2018-01-03] MEDS: PANTOPRAZOLE 40 MG TABLET PO SCH ×2 (08:26→17:30)
[2018-01-03] MEDS ORDERED: SERTRALINE 50 MG TAB PO SCH (09:00)
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
[2018-01-03] MEDS: oxyCODONE-APAP 10-325MG 1 EACH TAB PO PRN ×2 (14:17→21:20)
[2018-01-03] MEDS: NICOTINE 14MG/24HR PATCH TRANSDERM SCH (14:42)
[2018-01-03 16:37] LABS: Appearance,Urine Clear (Clear); Bilirubin,Urine Negative (Negative); Blood,Urine Negative (Negative); Color,Urine Yellow; Glucose,Urine (UA) Negative (Negative); Ketones,Urine Negative (Negative); Leukocyte Esterase,Urine Negative (Negative); Nitrite,Urine Negative (Negative); PH, Urine 5.5 (5.0-8.0); Protein,Urine Negative (Negative); Specific Gravity,Urine 1.019 (1.001-1.035); Urobilinogen,Urine <2.0 mg/dL (<2.0)
[2018-01-03] MEDS ORDERED: QUEtiapine 50 MG TAB PO SCH (21:00)
[2018-01-04] MEDS: PANTOPRAZOLE 40 MG TABLET PO SCH ×2 (08:15→16:43)
[2018-01-04] MEDS: amLODIPine 10 MG TAB PO SCH (08:15)
[2018-01-04] MEDS: NICOTINE 14MG/24HR PATCH TRANSDERM SCH (08:15)
[2018-01-04] MEDS: GABAPENTIN 400 MG CAP PO SCH ×2 (08:15→20:12)
[2018-01-04] MEDS: LISINOPRIL 5 MG TAB PO SCH (08:16)
[2018-01-04] MEDS: HYDROCHLOROTHIAZIDE 25 MG TAB PO SCH (08:16)
[2018-01-04] MEDS: oxyCODONE-APAP 10-325MG 1 EACH TAB PO PRN ×3 (08:17→20:13)
[2018-01-04] MEDS ORDERED: SERTRALINE 25 MG TAB PO SCH (09:00)
[2018-01-04] MEDS ORDERED: NICOTINE 14MG/24HR PATCH TRANSDERM SCH (09:00)
[2018-01-04] MEDS ORDERED: SERTRALINE 25 MG TAB PO STA (10:26)
[2018-01-04] MEDS: ACETAMINOPHEN TAB 325 MG TAB PO PRN (11:36)
[2018-01-04 12:09] LABS: Basophils % (A) 1 %; Eosinophils # (A) 0.2 k/uL (0-0.7); Eosinophils % (A) 3 %; HCT 48.7 % (39.0-53.0); HGB 15.9 gm/dL (13.0-17.5); Lymphocytes # (A) 2.5 k/uL (1.0-4.8); Lymphocytes % (A) 33 %; MCH 29.6 pg (25.0-35.0); MCHC 32.6 g/dL (31.0-37.0); MCV 90.7 fL (80.0-100.0); Mean Platelet Volume 7.8; Monocytes # (A) 0.4 k/uL (0-1.0); Monocytes % (A) 5 %; Neutrophils # (A) 4.3 k/uL (1.3-7.7); Neutrophils % (A) 56 %; Platelet Count 284 k/uL (150-450); RBC 5.37 m/uL (4.30-5.90); RDW 13.3 % (11.5-15.5); WBC 7.6 k/uL (3.8-10.6)
[2018-01-04 12:38] LABS: ALT 41 U/L (21-72); AST 32 U/L (17-59); Albumin 4.4 g/dL (3.5-5.0); Alkaline Phosphatase 71 U/L (38-126); Anion Gap 14 mmol/L; Blood Urea Nitrogen 15 mg/dL (9-20); Calcium 9.9 mg/dL (8.4-10.2); Carbon Dioxide 25 mmol/L (22-30); Chloride 98 mmol/L (98-107); Cholesterol 236 mg/dL (<200); Glucose 151 mg/dL (74-99); HDL Cholesterol 49 mg/dL (40-60); LDL Cholesterol,Calculated 118 mg/dL (0-99); Potassium 5.4 mmol/L (3.5-5.1); Sodium 137 mmol/L (137-145); Total Bilirubin 0.5 mg/dL (0.2-1.3); Total Protein 7.6 g/dL (6.3-8.2); Triglycerides 347 mg/dL (<150)
--- NOTE | 2018-01-04 14:00 | P.PN ---
Progress Note - Text Progress Note Date: 01/04/18 Interval History: Patient is a 32-year-old male who was seen today and he reports that he slept okay, the voices are less when he is in groups. He states when he is alone the voices increase in intensity. He states that he continues to have suicidal thoughts and still wants to carry out the plans that he had prior to admission because his "life is shitty", referring to the fact that he is in pain and can't work. Patient states that he can't focus on anything, states that he still feels depressed. Patient later approached nursing staff reporting that he was having heartburn and then that his head hurt. Mental Status: Appearance/Attitude: Patient is appropriately dressed, makes good eye contact and is superficially cooperative Behavior: Patient does not exhibit any psychomotor agitation or retardation. Speech/Language: Patient is spontaneous, speech is of normal volume and rhythm and he is coherent Thought Process: Patient is goal-directed there is no evidence of loose association or flight of ideas Thought Content: Patient states that the voices are more intense when he is alone, he denies visual hallucinations and no delusions or paranoid ideation were elicited. Patient states that he can't focus on anything and states that he continues to feel depressed. He states that he dislikes that he is unable to work and is in pain. Suicidal/Homicidal Ideation: Patient states that he continues to have suicidal thoughts and still wants to act on the plans that he had as an outpatient because his life is shitty, he denies current homicidal ideation. He states that he has no intent to act at this time Sensorium/Cognition: Patient is alert and oriented to person, place, and time and his recent and remote memory are grossly intact not formally tested. Patient states that he can't focus Mood/Affect: Patient's mood is slightly irritable, depressed and his affect is appropriate to his mood Insight/Judgment: Patient's insight and judgment are fair Assessment: patient reports that he continues to hear voices especially when he is alone and continues to report that he has suicidal thoughts and still wants to carry out the plans that he had prior to admission but has no intent to act at this time. Patient is observed on the unit to be interacting with other peers, has been attending groups and activities. Patient when he initially approached me this morning about being seen was told that I would see him when I was ready and then later when I passed him stated to me that I had said to him I would see him when I felt like. Patient later approached nursing staff and was complaining of heartburn and then a headache his blood pressures were checked which were initially high but then returned to normal. An EKG was performed which was abnormal. His laboratory testing revealed elevated lipid lipids as well as an elevated potassium. Plan: Patient's Zoloft will be increased to 100 mg and his Seroquel will be increased to 100 mg at bedtime to target his depression and psychotic symptoms. bus info consultant will be recontacted regarding the patient's abnormal EKG and elevated potassium level. Patient continues to require hospitalization to further stabilize his mood. Troponin levels were also ordered.
[2018-01-04 20:05] LABS: Hemoglobin A1C 6.3 % (4.0-6.0)
[2018-01-04] MEDS ORDERED: QUEtiapine 100 MG TAB PO SCH (21:00)
[2018-01-04] MEDS: MELATONIN 3 MG TABLET PO SCH ×2 (21:03→22:42)
[2018-01-05] MEDS ORDERED: SERTRALINE 100 MG TAB PO SCH (09:00)
[2018-01-05] MEDS: PANTOPRAZOLE 40 MG TABLET PO SCH ×2 (10:05→18:26)
[2018-01-05] MEDS: GABAPENTIN 400 MG CAP PO SCH ×2 (10:05→20:41)
[2018-01-05] MEDS: amLODIPine 10 MG TAB PO SCH (10:05)
[2018-01-05] MEDS: HYDROCHLOROTHIAZIDE 25 MG TAB PO SCH (10:06)
[2018-01-05] MEDS: LISINOPRIL 5 MG TAB PO SCH (10:06)
[2018-01-05] MEDS: NICOTINE 21MG/24HR PATCH TRANSDERM SCH (10:10)
[2018-01-05] MEDS: oxyCODONE-APAP 10-325MG 1 EACH TAB PO PRN ×2 (10:17→18:26)
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
[2018-01-05] MEDS: QUEtiapine 50 MG TAB PO SCH (20:39)
[2018-01-05] MEDS: ACETAMINOPHEN TAB 325 MG TAB PO PRN (21:07)
--- NOTE | 2018-01-05 21:15 | XR ---
PROCEDURE: XR Hip Complete RT, 2 views DATE AND TIME: 01/05/2018 9:08 PM REFERRING PHYSICIAN: Lola Cha MD CLINICAL INDICATION: PHH, reports fall TECHNIQUE: AP and frog-leg lateral right hip views COMPARISON: None FINDINGS: The orthopedic hardware is intact. There is no evidence fracture or malalignment. IMPRESSION: NO ACUTE PROCESS.
[2018-01-05] MEDS: MELATONIN 3 MG TABLET PO SCH (22:06)
[2018-01-06] MEDS: oxyCODONE-APAP 10-325MG 1 EACH TAB PO PRN ×3 (06:35→20:30)
[2018-01-06] MEDS: PANTOPRAZOLE 40 MG TABLET PO SCH ×2 (10:20→16:59)
[2018-01-06] MEDS: HYDROCHLOROTHIAZIDE 25 MG TAB PO SCH (10:20)
[2018-01-06] MEDS: GABAPENTIN 400 MG CAP PO SCH ×2 (10:20→20:29)
[2018-01-06] MEDS: amLODIPine 10 MG TAB PO SCH (10:20)
[2018-01-06] MEDS: SERTRALINE 50 MG TAB PO SCH ×2 (10:21→12:23)
[2018-01-06] MEDS: NICOTINE 21MG/24HR PATCH TRANSDERM SCH (10:21)
[2018-01-06] MEDS: LISINOPRIL 5 MG TAB PO SCH (10:21)
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
[2018-01-06] MEDS: MELATONIN 3 MG TABLET PO SCH (22:02)
[2018-01-06] MEDS: QUEtiapine 50 MG TAB PO SCH (22:03)
[2018-01-07] MEDS: LISINOPRIL 5 MG TAB PO SCH (08:30)
[2018-01-07] MEDS: GABAPENTIN 400 MG CAP PO SCH ×2 (08:30→22:01)
[2018-01-07] MEDS: amLODIPine 10 MG TAB PO SCH (08:30)
[2018-01-07] MEDS: HYDROCHLOROTHIAZIDE 25 MG TAB PO SCH (08:30)
[2018-01-07] MEDS: PANTOPRAZOLE 40 MG TABLET PO SCH ×2 (08:30→16:44)
[2018-01-07] MEDS: SERTRALINE 50 MG TAB PO SCH (08:31)
[2018-01-07] MEDS: NICOTINE 21MG/24HR PATCH TRANSDERM SCH (08:31)
[2018-01-07] MEDS: oxyCODONE-APAP 10-325MG 1 EACH TAB PO PRN ×3 (08:32→22:45)
[2018-01-07 08:41] VITALS: TEMP 97.6
[2018-01-07] MEDS ORDERED: IBUPROFEN 600 MG TAB PO PRN (14:22)
--- NOTE | 2018-01-07 14:36 | P.PN ---
Progress Note - Text Progress Note Date: 01/07/18 Interval History: Patient is a 32-year-old male who was seen today who is reporting that he is feeling dopey and didn't take his Zoloft this morning because he feels that it's making him feel foggy. Patient states that he is too sleepy on the increased dose of Seroquel. He reports no auditory hallucinations and no suicidal ideation today. When the patient and I discussed discharge on Monday he started to report that he was going to feel suicidal and just because he wasn't today didn't mean he wouldn't tomorrow. Patient states that he is continuing to have pain and was requesting Flexeril. 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 Mental Status: Appearance/Attitude: Patient is appropriately dressed, makes good eye contact and is cooperative Behavior: Patient does not display any psychomotor agitation or retardation. Speech/Language: Patient speech is spontaneous and normal volume and rhythm and he is coherent. Thought Process: He is goal-directed there is no evidence of loose association or flight of ideas Thought Content: Patient states he is currently not hearing voices no visual hallucinations and no delusions or paranoid ideation were elicited. Patient can be demanding at times and when I discussed discharge tomorrow he stated that he may be suicidal tomorrow. Patient states he's feeling groggy during the day as well as loopy from the Zoloft and refused to take it this morning. Patient states he is oversleeping. Suicidal/Homicidal Ideation: Patient denies any current suicidal or homicidal ideation Sensorium/Cognition: Patient is alert and oriented to person, place, and time and his focus and attention are not as good as they were. Mood/Affect: Patient reports his mood remains depressed, his affect is appropriate Insight/Judgment: Patient's insight and judgment are fair Assessment: patient was requesting that his Seroquel be decreased because he is feeling groggy during the day and didn't take his Zoloft because he is feeling loopy. Patient reports no auditory hallucinations today and no suicidal ideation. Patient again becomes very demanding and angry when discussing discharge and then reported that he perhaps would feel suicidal tomorrow. Patient has been attending groups but he states only in the afternoon. Plan: will decrease patient's Seroquel to 100 mg at bedtime and continue Zoloft 50 mg in the morning. 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 Patient and I discussed discharge plans for Monday and he states he is going to return to live with his mother. Patient was encouraged to take his medication and attend groups and activities.
[2018-01-07] MEDS: QUEtiapine 100 MG TAB PO SCH (22:01)
[2018-01-07] MEDS: MELATONIN 3 MG TABLET PO SCH (22:45)
[2018-01-08] MEDS: oxyCODONE-APAP 10-325MG 1 EACH TAB PO PRN ×3 (07:12→21:15)
[2018-01-08] MEDS: NICOTINE 21MG/24HR PATCH TRANSDERM SCH (08:30)
[2018-01-08] MEDS: HYDROCHLOROTHIAZIDE 25 MG TAB PO SCH (08:31)
[2018-01-08] MEDS: GABAPENTIN 400 MG CAP PO SCH ×2 (08:31→21:15)
[2018-01-08] MEDS: LISINOPRIL 5 MG TAB PO SCH (08:31)
[2018-01-08] MEDS: amLODIPine 10 MG TAB PO SCH (08:31)
[2018-01-08] MEDS: PANTOPRAZOLE 40 MG TABLET PO SCH ×2 (08:31→18:01)
[2018-01-08] MEDS: SERTRALINE 50 MG TAB PO SCH (08:32)
--- NOTE | 2018-01-08 13:38 | P.PN ---
Progress Note - Text Progress Note Date: 01/08/18 Interval History: Patient is a 32-year-old male who was seen today and states that he didn't take his Seroquel last night because he wanted a given a later time. Patient states that he did take his Zoloft this morning and is not feeling loopy as he described earlier. Patient states that he did speak with his about setting up fixed visitation with his 2-year-old daughter and she was agreeable to this plan. Patient states that he continues to plan to live with his mother for a while after discharge. Patient reported no suicidal thoughts and no auditory hallucinations. Patient's appetite is been good and he is been sleeping about 5 hours a night and does sleep again in the morning after breakfast. Mental Status: Appearance/Attitude: Patient is appropriately dressed, makes good eye contact and is cooperative Behavior: Patient does not display any psychomotor agitation or retardation. Speech/Language: Patient's speech is spontaneous of normal volume and rhythm and he is coherent. Thought Process: Patient is goal-directed there is no evidence of loose association or flight of ideas Thought Content: Denies auditory or visual hallucinations no delusions or paranoid ideation were elicited. Patient states that he slept about 5 hours last night, states that he had a good discussion with his regarding visitation with his daughter. He states that he is not feeling loopy today after taking the Zoloft. Suicidal/Homicidal Ideation: Patient denies any current suicidal or homicidal ideation. Sensorium/Cognition: Patient is alert and oriented to person, place, and time he continues to report difficulties with his focus and attention Mood/Affect: Patient's mood is pleasant and his affect is appropriate. Insight/Judgment: Patient's insight and judgment are fair Assessment: patient reports no side effects from the medication at the current doses although he did not take his Seroquel last evening because he wanted to take it later in the night. Patient reports not feeling loopy this morning. He reports no suicidal ideation or auditory hallucinations. Patient states that he continues to plan to go live with his mother for a while after discharge. Patient also reports that he and his had a good discussion regarding scheduling visitation with his daughter. Patient is up on the unit and social, attending groups and activities in the afternoon. Plan: patient will continue on Seroquel 100 mg at bedtime and 50 mg of Zoloft in the morning. Patient will live with his mother after discharge. Patient was being seen at [facility] and follow-up care will be arranged prior to his discharge tomorrow.
[2018-01-08] MEDS: QUEtiapine 100 MG TAB PO SCH (21:15)
[2018-01-08] MEDS: MELATONIN 3 MG TABLET PO SCH (22:51)
[2018-01-09 06:43] VITALS: BP 127/77; PULSE 66; RESP 16
[2018-01-09] MEDS: oxyCODONE-APAP 10-325MG 1 EACH TAB PO PRN (08:36)
[2018-01-09] MEDS: GABAPENTIN 400 MG CAP PO SCH (08:36)
[2018-01-09] MEDS: SERTRALINE 50 MG TAB PO SCH (08:37)
[2018-01-09] MEDS: LISINOPRIL 5 MG TAB PO SCH (08:37)
[2018-01-09] MEDS: amLODIPine 10 MG TAB PO SCH (08:37)
[2018-01-09] MEDS: HYDROCHLOROTHIAZIDE 25 MG TAB PO SCH (08:37)
[2018-01-09] MEDS: PANTOPRAZOLE 40 MG TABLET PO SCH (08:37)
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
== END 2018-01-09 11:24 | disposition home or self-care (01) | DRG 885 ==
LOC: EC 20:47 → 3MHU 01-03 01:28
PROVIDERS: ADMIT Psychiatry & Neurology Psychiatry; ATTEND Psychiatry & Neurology Psychiatry
DX: F32.3 Major depressive disorder, single episode, severe with psychotic features (principal); R45.851 Suicidal ideations; W10.9XXA Fall (on) (from) unspecified stairs and steps, initial encounter; M54.2 Cervicalgia; M25.551 Pain in right hip; M25.561 Pain in right knee; K21.9 Gastro-esophageal reflux disease without esophagitis; I10 Essential (primary) hypertension; F41.9 Anxiety disorder, unspecified; R94.31 Abnormal electrocardiogram [ECG] [EKG]; F17.200 Nicotine dependence, unspecified, uncomplicated; Z86.718 Personal history of other venous thrombosis and embolism; Z87.820 Personal history of traumatic brain injury; Z79.899 Other long term (current) drug therapy; Z91.5 Personal history of self-harm; Y92.9 Unspecified place or not applicable
CPT/HCPCS: 72050; 73502; 80053; 80061; 80306; 81003; 82075; 83036; 84443; 84484; 85025; 93005; 99285

== ENCOUNTER 2018-08-22 23:55 | Emergency (ER) | payer MEDICARE, OTHER ==
[2018-08-23 00:01] VITALS: RESP 18
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
[2018-08-23 02:08] VITALS: BP 142/87; PULSE 85; TEMP 97.9
== END 2018-08-23 01:50 | disposition home or self-care (01) ==
LOC: EC 23:55
DX: G89.29 Other chronic pain (principal); M25.551 Pain in right hip; K21.9 Gastro-esophageal reflux disease without esophagitis; F41.9 Anxiety disorder, unspecified; F17.200 Nicotine dependence, unspecified, uncomplicated; Z79.899 Other long term (current) drug therapy; Z98.890 Other specified postprocedural states
CPT/HCPCS: 99284

== ENCOUNTER 2019-01-19 12:23 | Emergency (ER) | payer MEDICARE, OTHER ==
[2019-01-19 12:35] VITALS: BP 142/90; PULSE 96; RESP 18; TEMP 98.8
[2019-01-19] MEDS ORDERED: PENICILLIN VK 500MG STARTER 4 TAB BTL PO STA (12:55)
[2019-01-19] MEDS ORDERED: HYDROcodone/APAP 5-325MG 1 EACH TAB PO STA (12:55)
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
== END 2019-01-19 13:20 | disposition home or self-care (01) ==
LOC: EC 12:23
DX: K08.89 Other specified disorders of teeth and supporting structures (principal); K21.9 Gastro-esophageal reflux disease without esophagitis; F32.9 Major depressive disorder, single episode, unspecified; F41.9 Anxiety disorder, unspecified; F17.200 Nicotine dependence, unspecified, uncomplicated; Z53.29 Procedure and treatment not carried out because of patient's decision for other reasons; Z86.718 Personal history of other venous thrombosis and embolism; Z79.899 Other long term (current) drug therapy
CPT/HCPCS: 99282

== ENCOUNTER 2019-01-22 12:14 | Emergency (ER) | payer MEDICARE, OTHER ==
[2019-01-22 12:21] VITALS: BP 148/84; PULSE 102; RESP 18; TEMP 98.1
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
[2019-01-22] MEDS: ACET/COD 300 MG/30 MG STARTER PACK 6 TAB BTL PO STA ×2 (13:17→13:21)
== END 2019-01-22 13:23 | disposition home or self-care (01) ==
LOC: EC 12:14
DX: K08.89 Other specified disorders of teeth and supporting structures (principal); K21.9 Gastro-esophageal reflux disease without esophagitis; F32.9 Major depressive disorder, single episode, unspecified; F41.9 Anxiety disorder, unspecified; F17.200 Nicotine dependence, unspecified, uncomplicated; Z86.718 Personal history of other venous thrombosis and embolism; Z79.01 Long term (current) use of anticoagulants; Z79.899 Other long term (current) drug therapy
CPT/HCPCS: 99283

== ENCOUNTER 2021-03-03 16:30 | Emergency (ER) | payer MEDICARE, OTHER ==
--- NOTE | 2021-03-03 17:36 | XR ---
EXAMINATION TYPE: XR Hip Complete RT DATE OF EXAM: 03/03/2021 Comparison: 08/23/2018 Clinical History: 35-year-old male right hip pain. Technologist notes indicates surgery one week ago. Findings: Extensive plate and screw fixation of the right acetabulum. As compared to 2018, there has been place ment of a right hip total arthroplasty. There is some periprosthetic lucency along the superior aspec t of the cup component probably postsurgical change. No periprosthetic fracture is identified. Some h eterotopic ossification is noted along the anterior superior aspect of the hip joint. Lateral skin st aples. Impression: Extensive plate and screw fixation of the right acetabulum. As compared to 2018, there has been place ment of a total hip arthroplasty. Prominent but nonbridging anterior superior heterotopic ossificatio ns remain. A bony gap along the superior aspect of the acetabular cup component may be postsurgical a nd should be correlated with the patient's postoperative exam. No periprosthetic fracture is identifi ed.
[2021-03-03] MEDS ORDERED: MORPHINE SULFATE 4 MG/ML SYRINGE IV STA (18:16)
[2021-03-03] MEDS ORDERED: ONDANSETRON 4 MG/2 ML VIAL IVP STA (18:16)
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
[2021-03-03 20:03] LABS: ALT 24 U/L (4-49); AST 31 U/L (17-59); African American GFR (CKD) >90 (>60 ml/min/1.73 sqM); Albumin 4.1 g/dL (3.5-5.0); Alkaline Phosphatase 141 U/L (38-126); Anion Gap 10 mmol/L; Basophils % (A) 1 %; Blood Urea Nitrogen 6 mg/dL (9-20); Calcium 9.5 mg/dL (8.4-10.2); Carbon Dioxide 24 mmol/L (22-30); Chloride 97 mmol/L (98-107); Eosinophils # (A) 0.1 k/uL (0-0.7); Eosinophils % (A) 2 %; Glucose 320 mg/dL (74-99); HCT 40.7 % (39.0-53.0); HGB 12.6 gm/dL (13.0-17.5); Hypochromasia Moderate; Lymphocytes # (A) 1.3 k/uL (1.0-4.8); Lymphocytes % (A) 22 %; MCH 27.8 pg (25.0-35.0); MCV 89.8 fL (80.0-100.0); Mean Platelet Volume 8.6; Monocytes # (A) 0.4 k/uL (0-1.0); Monocytes % (A) 7 %; Neutrophils # (A) 3.8 k/uL (1.3-7.7); Neutrophils % (A) 66 %; Non-African American GFR(CKD) >90 (>60 ml/min/1.73 sqM); Platelet Count 387 k/uL (150-450); Poikilocytosis Slight; Potassium 4.6 mmol/L (3.5-5.1); RBC 4.53 m/uL (4.30-5.90); RDW 14.5 % (11.5-15.5); Sodium 131 mmol/L (137-145); Total Bilirubin 0.7 mg/dL (0.2-1.3); Total Protein 7.5 g/dL (6.3-8.2); WBC 5.7 k/uL (3.8-10.6)
[2021-03-03] MEDS ORDERED: KETOROLAC 15 MG/ML 1 ML VIAL IVP STA (20:19)
[2021-03-03 21:31] VITALS: BP 137/85; PULSE 84; RESP 18; TEMP 97.9
== END 2021-03-03 21:02 | disposition home or self-care (01) ==
LOC: EC 16:30
DX: T84.84XA Pain due to internal orthopedic prosthetic devices, implants and grafts, initial encounter (principal); R11.2 Nausea with vomiting, unspecified; K21.9 Gastro-esophageal reflux disease without esophagitis; F17.200 Nicotine dependence, unspecified, uncomplicated; Z86.718 Personal history of other venous thrombosis and embolism; Z79.82 Long term (current) use of aspirin; Z96.641 Presence of right artificial hip joint
CPT/HCPCS: 36415; 73502; 80053; 85025; 96374; 96375; 99284